=== PATIENT | male | born 1985 | race African-American/Black ===

== ENCOUNTER 2016-08-13 11:12 | Emergency (ER) | payer MEDICAID ==
[~2016-08-13] VITALS: Ht 177.8 cm; Wt 75.0 kg
[2016-08-13] MEDS ORDERED: OXCA300T4 PO (11:25)
[2016-08-13] MEDS ORDERED: SODIUM CHLORIDE 0.9% 1,000 ML IV ONE (11:40)
[2016-08-13 11:59] LABS: DIFFERENTIAL COMMENT 1; HEMATOCRIT. 47.9 % (42.0-52.0); MEAN CORPUSCULAR HEMOGLOBIN 31.7 pg (28.0-32.0); MEAN CORPUSCULAR HGB CONC 33.4 g/dL (31.0-37.0); MEAN CORPUSCULAR VOLUME 94.8 fL (80.0-94.0); MEAN PLATELET VOLUME 8.4 fl (7.4-10.4); PLATELET 206 x1000/uL (130-400); RED BLOOD CELL COUNT 5.06 mill/uL (4.7-6.1); RED CELL DISTRIBUTION WIDTH 13.3 % (11.6-14.6); WHITE BLOOD COUNT 11.8 x1000/uL (4.5-11.0)
[2016-08-13 12:13] LABS: ALANINE AMINOTRANSFERASE 22 IU/L (13-61); ALBUMIN 4.2 g/dL (3.4-5.0); ANION GAP 19; CALCIUM 9.3 mg/dL (8.5-10.1); CARBON DIOXIDE 19 mEq/L (21-32); CHLORIDE 107 mEq/L (98-107); INDEX HEMOLYSI 1 (1-3); INDEX ICTERIC 1 (1-4); INDEX LIPEMIC 1 (1-3); UREA NITROGEN BLOOD 15 mg/dL (7-21); eGFR > 60 mL/min (>60)
[2016-08-13 12:15] LABS: PHENOBARBITAL < 2.1 ug/mL (15.0-40.0); PHENYTOIN < 0.4 ug/mL (10-20); PLATELET ESTIMATE NORMAL
[2016-08-13 12:16] LABS: CARBAMAZEPINE < 0.5 ug/mL (4-12); VALPROIC ACID 3.5 ug/mL (50-100)
[2016-08-13] MEDS ORDERED: VALPROIC ACID 250MG CAPSULE PO ONE (13:15)
[2016-08-13 16:30] VITALS: BP 134/71
[2016-08-13] MEDS ORDERED: LORAZEPAM 2MG/ML CPJ IM ONE (16:45)
== END 2016-08-13 16:45 | disposition home or self-care (01) ==
LOC: ER 11:19
DX: G40.909 Epilepsy, unspecified, not intractable, without status epilepticus (principal); R03.0 Elevated blood-pressure reading, without diagnosis of hypertension; G80.9 Cerebral palsy, unspecified; Z88.8 Allergy status to other drugs, medicaments and biological substances
CPT/HCPCS: 36415; 71010; 80053; 80156; 80165; 80184; 80185; 85025; 96360; 96372; 99285; J2060; J7030

== ENCOUNTER 2017-09-07 12:26 | Emergency (ER) | payer MEDICAID ==
[~2017-09-07] VITALS: Ht 170.2 cm; Wt 68.0 kg
[~2017-09-07 12:26] MED LIST: OXCA300T4 PO
[2017-09-07] MEDS ORDERED: SODIUM CHLORIDE 0.9% 1,000 ML IV ONE (12:38)
[2017-09-07 13:03] LABS: BASOPHILS % 1.2 % (0.0-2.0); EOSINOPHILS % 2.7 % (0.0-5.0); HEMATOCRIT. 47.1 % (42.0-52.0); HEMOGLOBIN. 16.1 g/dL (14.0-18.0); LYMPHOCYTES % 11.3 % (20.0-50.0); MEAN CORPUSCULAR HEMOGLOBIN 32.4 pg (28.0-32.0); MEAN CORPUSCULAR VOLUME 95.1 fL (80.0-94.0); MEAN PLATELET VOLUME 8.2 fl (7.4-10.4); MONOCYTES % 7.5 % (2.0-8.0); NEUTROPHILS % 77.3 % (40.0-76.0); PLATELET 216 x1000/uL (130-400); RED BLOOD CELL COUNT 4.95 mill/uL (4.7-6.1); RED CELL DISTRIBUTION WIDTH 13.2 % (11.6-14.6)
[2017-09-07 13:08] LABS: CHLORIDE 107 mEq/L (98-107)
[2017-09-07] MEDS ORDERED: OXCARBAZEPINE 300MG TABLET PO STA (13:09)
[2017-09-07 13:11] LABS: ETHANOL BLOOD < 10 mg/dL
[2017-09-07 13:23] LABS: CARBAMAZEPINE < 0.5 ug/mL (4-12); PHENOBARBITAL < 2.1 ug/mL (15.0-40.0)
[2017-09-07 13:24] LABS: INR 1.1; PROTHROMBIN TIME 11.8 sec (9.4-11.6)
[2017-09-07 15:45] VITALS: BP 124/80
== END 2017-09-07 15:57 | disposition left against medical advice (07) ==
LOC: ER 12:27
DX: R56.9 Unspecified convulsions (principal); R79.1 Abnormal coagulation profile; Z88.8 Allergy status to other drugs, medicaments and biological substances
CPT/HCPCS: 36415; 80048; 80156; 80165; 80184; 80185; 85025; 85610; 85730; 96360; 99284; G0482; J7030; Z7610

== ENCOUNTER 2018-10-25 23:10 | Emergency (ER) | payer MEDICAID ==
[~2018-10-25] VITALS: Ht 180.3 cm; Wt 62.0 kg
[2018-10-26 01:33] VITALS: BP 125/67
== END 2018-10-26 01:33 | disposition home or self-care (01) ==
LOC: ER 23:10
DX: M79.671 Pain in right foot (principal); R56.9 Unspecified convulsions; I51.9 Heart disease, unspecified; J98.4 Other disorders of lung
CPT/HCPCS: 73630; 99283